=== PATIENT | male | born 1970 | race Two or more races ===

== ENCOUNTER 2023-07-20 12:47 | Outpatient (OUT) | payer SELFPAY | END 2023-07-20 12:48 | disposition home or self-care (01) | LOC: PST 12:48 | PROVIDERS: Visit Provider Urology | DX: Z01.818 Encounter for other preprocedural examination (principal); R31.9 Hematuria, unspecified; N20.0 Calculus of kidney; I10 Essential (primary) hypertension; R51.9 Headache, unspecified; J30.2 Other seasonal allergic rhinitis ==

== ENCOUNTER 2023-07-23 06:56 | Day surgery (SDC) | payer BC, SELFPAY ==
[2023-07-23] MEDS: LIDOCAINE 2% JELLY 10 ML UR (07:53)
--- NOTE | 2023-07-23 08:06 | PM.URSON ---
Urology Surgery Operative Note Operative Note Procedure Date: 07/23/23 Time Out Performed: yes Pre-op Diagnosis: microhematuria Post-op Diagnosis: same as pre-op Procedures performed: #1. Cystoscopy. Anesthesia: local Primary Surgeon: Baljit Riddle Complications: none Estimated blood loss (mL): 0 Findings: #1. No bladder tumors. #2. Trilobar obstruction of the prostate. Specimens: none Indications for Procedures: this gentleman has persistent microhematuria. His upper tract studies showed a punctate renal stone. He now presents for cystoscopy. He has signed an informed consent. Detailed description of Procedure: patient was kept on the rharrington bed and brought to the endoscopy suite. He was placed in the supine position. Timeout was done by all parties in the room. We all agreed upon the patient's identification and the planned procedures for this patient. His genitalia were sterilely prepped and draped in the usual fashion. 2 percent lidocaine gel was passed per urethra. I started by passing a flexible cystoscope per urethra and into the bladder. The anterior urethra was normal. Prostatic urethra showed trilobar obstruction. Minimal friability to the prostate was noted. Careful panendoscopy in the bladder showed no evidence of any tumors stones or foreign bodies. No erythematous mucosal areas were seen. The scope was retroverted upon itself and no new findings were noted. The scope was then removed. He was then discharged to home.
== END 2023-07-23 08:02 | disposition home or self-care (01) ==
PROVIDERS: Visit Provider Urology
PROC: (CPT 52000; principal; 2023-07-23 07:45)
DX: R31.21 Asymptomatic microscopic hematuria (principal); N20.0 Calculus of kidney; I10 Essential (primary) hypertension; R51.9 Headache, unspecified; J30.2 Other seasonal allergic rhinitis; R82.994 Hypercalciuria; R82.998 Other abnormal findings in urine; Z80.42 Family history of malignant neoplasm of prostate; N40.0 Benign prostatic hyperplasia without lower urinary tract symptoms
CPT/HCPCS: 52000